=== PATIENT | female | born 1955 | race Caucasian/White ===

== ENCOUNTER → 2024-01-13 | Outpatient (CLI) | payer MEDICARE ==
[2024-01-13 14:12] LABS: INR 2.42 (0.85-1.15); PROTHROMBIN TIME 26.5 SEC (9.6-11.6)
[2024-01-13 14:13] LABS: PARTIAL THROMBOPLASTIN TIME 52.7 SEC (26.3-35.5)
== END | disposition home or self-care (01) ==
LOC: LAB 12:48
PROVIDERS: ATTEND Internal Medicine
DX: I48.91 Unspecified atrial fibrillation (principal); Z79.01 Long term (current) use of anticoagulants
CPT/HCPCS: 36415; 85610; 85730